=== PATIENT | female | born 1935 | race Caucasian/White ===

== ENCOUNTER → 2023-09-24 | Outpatient (CLI) | payer MEDICARE ==
[~2023-09-24] VITALS: Ht 165.1 cm; Wt 53.5 kg
[~2023-09-24] MED LIST: ACID1TAB PO; ATIV1TAB10 PO; CARV6.25 PO; ECOT81TA5 PO; ENTR1TAB PO; EQL50TAB2 PO; HYDR50TA70 PO; MELA10CA2 PO; NOXI1TAB PO; RA M500C PO; TIRO88CA3 PO
[2023-09-24 10:39] VITALS: BP 130/70; O2SAT 97
== END ==
LOC: M PAL 10:13
PROVIDERS: ATTEND Nurse Practitioner Adult Health
DX: C80.1 Malignant (primary) neoplasm, unspecified (principal); C79.51 Secondary malignant neoplasm of bone; R91.8 Other nonspecific abnormal finding of lung field; Z79.620 Long term (current) use of immunosuppressive biologic; Z79.890 Hormone replacement therapy; Z79.82 Long term (current) use of aspirin; Z79.899 Other long term (current) drug therapy; Z51.5 Encounter for palliative care; Z66 Do not resuscitate; Z80.3 Family history of malignant neoplasm of breast; Z80.49 Family history of malignant neoplasm of other genital organs; Z80.7 Family history of other malignant neoplasms of lymphoid, hematopoietic and related tissues; Z92.3 Personal history of irradiation